=== PATIENT | male | born 1955 | race Caucasian/White ===

== ENCOUNTER → 2018-09-29 | Outpatient (CLI) | payer OTHER ==
--- NOTE | 2018-09-29 16:49 | RAD ---
Three-phase bone scan of the knees, 09/29/2018: HISTORY: Left knee pain, previous arthroplasties Imaging of both knees was performed following IV injection of 25 mCi of technetium 99m MDP. The dynamic flow study shows no definite abnormality. The immediate blood pool image does demonstrate slightly increased activity along the femoral and to a lesser degree the tibial margin of the left hip prosthesis. The delayed images demonstrate moderately increased activity along both the tibial and femoral margins of the prosthesis as well as at the left patellar level. There is slightly increased activity medially at the right knee joint compatible with arthritis. IMPRESSION: 1. Moderate periprosthetic activity on the left raising the possibility of loosening or infection versus residual postsurgical change. 2. Mildly increased activity medially at the right knee compatible with arthritis. Electronically signed by: Vincenzo Maxwell MD (09/29/2018 4:47 PM) [facility]
== END | disposition home or self-care (01) ==
LOC: NM 08:25
PROVIDERS: ATTEND Orthopaedic Surgery
DX: M25.562 Pain in left knee (principal); I10 Essential (primary) hypertension
CPT/HCPCS: 78315; 96374; A9503

== ENCOUNTER → 2020-04-27 | Outpatient (CLI) | payer MEDICARE, OTHER ==
--- NOTE | 2020-04-27 08:51 | RAD ---
STUDY: CT of the left lower extremity without contrast INDICATION: Left knee pain. Status post knee replacement in 2018. COMPARISON: Left knee radiographs 04/21/2018 TECHNIQUE: Axial CT imaging of the left lower extremity/knee performed without contrast. Coronal and sagittal reformats were obtained. Metal artifact reduction technique utilized. One or more of the following individualized dose reduction techniques were utilized for this examination: 1. Automated exposure control 2. Adjustment of the mA and/or kV according to patient size 3. Use of iterative reconstruction technique. FINDINGS: Bones: Status post total knee arthroplasty. The polyethylene components remain normally located. No findings to suggest loosening of the femoral component or periprosthetic fracture. The tibial component is intact and there is no loosening along the tibial stem or subjacent to the lateral aspect of the tibial tray. Thin lucency subjacent to the tibial tray at the periphery of the medial tibial plateau measures less than 2 mm which does not meet criteria for loosening however there is a small area of more extensive lucency on image 74 series 6 measuring just under 5 mm in depth, transverse dimension and AP dimension. Soft tissues: Small knee joint effusion no significant muscular atrophy/fatty infiltration. The distal quadriceps is intact as is the patellar tendon. IMPRESSION: 1. Status post total knee arthroplasty with intact hardware. No periprosthetic fracture, knee joint malalignment or polyethylene displacement. 2. Focal lucency at the periphery of the medial tibial plateau subjacent to the tibial tray measuring just under 5 mm in all three imaging planes (image 74 series 6). A correlate for this finding is not well seen on the comparison radiographs from 04/21/2018. A small area of bone collapse is a consideration but it would be useful to obtain radiographs to directly compare to the prior exam. 3. Small knee joint effusion. Intact extensor mechanism. Electronically signed by: ONUR BROWN MD (04/27/2020 8:48 AM) [id number]
== END | disposition home or self-care (01) ==
LOC: CT 07:47
PROVIDERS: ATTEND Family Medicine
DX: M17.11 Unilateral primary osteoarthritis, right knee (principal); M25.461 Effusion, right knee; Z96.651 Presence of right artificial knee joint
CPT/HCPCS: 73700

== ENCOUNTER → 2020-06-13 | Outpatient (CLI) | payer MEDICARE, OTHER ==
--- NOTE | 2020-06-13 12:57 | RAD ---
EXAM: Bone scintigraphy. HISTORY: 64-year-old male presents with left knee pain status post arthroplasty in 2018. TECHNIQUE: Sonographic images of the knees were obtained following the intravenous administration of 25 mCi technetium 99m MDP. COMPARISON: CT dated 04/27/2020. Bone scan dated 09/29/2018 FINDINGS: There is increased retained tracer activity surrounding a left knee arthroplasty, predominantly the interface between the tibial component and tibia and the lateral aspect of the femoral component. There is degree of radiotracer activity is there a similar compared to the prior study, allowing for difference in technique. There is also intense increased right knee tricompartmental greater tracer activity consistent with advanced degenerative change. There is right genu varus. IMPRESSION: 1. Radiotracer activity surrounding a left knee arthroplasty, similar appearance compared to a study performed 09/29/2018. This degree of radiotracer activity is not expected at this interval following arthroplasty surgery. The possibility of a stable component of loosening is not excluded. The stability compared to the prior bone scan does not favor a progressive infectious etiology. 2. Intense tricompartmental radiotracer activity involving the right knee due to advanced osteoarthritis. There is superimposed incidental right genu varus. Electronically signed by: Deysi Pedroza MD (06/13/2020 12:53 PM) [id number]
== END ==
LOC: NM 07:52
PROVIDERS: ATTEND Orthopaedic Surgery
DX: M17.11 Unilateral primary osteoarthritis, right knee (principal); M21.061 Valgus deformity, not elsewhere classified, right knee; Z96.652 Presence of left artificial knee joint
CPT/HCPCS: 78300; A9503

== ENCOUNTER → 2021-09-04 | Outpatient (CLI) | payer MEDICARE, OTHER ==
[~2021-09-04] MED LIST: IOHEXOL 350 MG/ML 100 ML VIAL. IV ONE
[2021-09-04 14:00] LABS: CREATININE 0.9 mg/dL (0.7-1.3); GFR 84.2
--- NOTE | 2021-09-04 14:39 | RAD ---
EXAMINATION: CTA CHEST CLINICAL HISTORY: Shortness of breath, elevated d-dimer. Technique: Spiral CT acquisition of the chest from the thoracic inlet to the upper abdomen following IV contrast with coronal and sagittal reformatted images also provided for review. 3D maximum intensi ty projection images also performed. Artificial intelligence software analysis also performed jennifer matta [employer]. CT Dose Reduction Employed: One or more of the following individualized dose reduction techniques wer e utilized for this examination: 1. Automated exposure control 2. Adjustment of the mA and/or kV ac cording to patient size 3. Use of iterative reconstruction technique. COMPARISON: None FINDINGS: Pulmonary Vasculature: No evidence of main, lobar, or segmental pulmonary arterial thrombus. Lung Parenchyma, Pleura, and Airways: No focal consolidation. No pleural effusion. Central airways pa tent. Lower Neck, Lymph Nodes, and Mediastinum: Visualized thyroid gland within normal limits. No mediastin al, hilar, or axillary lymphadenopathy. Heart, Pericardium, and Thoracic Vessels: Cardiac chambers normal in size. No pericardial effusion. T horacic aorta within normal limits. No coronary artery atherosclerotic calcifications are noted, alth ough the study is not optimized for coronary assessment. Bones and Soft Tissues: Multilevel thoracolumbar degenerative changes. Upper Abdomen: 1 cm hypoenhancing lesion in the hepatic dome, incompletely evaluated but suggestive o f a cyst. Multiple large cysts in the partially visualized left kidney. IMPRESSION: No evidence of main, lobar, or segmental pulmonary embolism. Multiple left renal cysts and possible small hepatic cyst as described. Electronically signed by: John Tinsley DO (09/04/2021 2:36 PM) [facility]
== END ==
LOC: CT 13:25
PROVIDERS: ATTEND Family Medicine
DX: N28.1 Cyst of kidney, acquired (principal); M47.815 Spondylosis without myelopathy or radiculopathy, thoracolumbar region
CPT/HCPCS: 36415; 71275; 82565; 84520; Q9967